=== PATIENT | female | born 1975 | race Caucasian/White ===

== ENCOUNTER 2017-04-17 08:45 | Emergency (ER) | payer BC ==
[2017-04-17 08:55] VITALS: BP 126/87
--- NOTE | 2017-04-17 09:09 | ERNOTE ---
ENT HPI Presenting Symptoms: other - patient woke this morning with purulent drainage from the left eye Time Seen by Provider: 04/17/17 09:02 Exam Limitations: no limitations - Immun/Allergies/Home Medications Immunizations: IMMUNIZATION HX Immunizations Up to Date Yes History of Influenza Vaccine More Information Required Hx Pneumococcal Vaccination More Information Required Allergies/Adverse Reactions: Allergies Allergy/AdvReac Type Severity Reaction Status Date / Time No Known Allergies Allergy Verified 05/03/16 06:21 Home Medications: HOME MEDICATIONS ALPRAZolam [Xanax] 0.5 mg PO Q6H PRN 10/20/15 [Last Taken Unknown] Acetaminophen [Tylenol] 1,000 mg PO Q6H PRN 10/20/15 [Last Taken Unknown] Ranitidine HCl [Zantac] 150 mg PO BID PRN 10/20/15 [Last Taken Unknown] Tobramycin/Dexamethasone [Tobradex Eye Drops] 1 drop OP QID #5 ml 04/17/17 [ Last Taken Unknown] - History of Present Illness Narrative: Patient is unclear exactly what happened but woke up this morning with drainage from the left eye with no known infectious contacts Severity: Present: moderate ENT Location: Present: eye (L) Prearrival Treatment: Present: no prearrival treatment Modifying Factors - Improves: Reports: nothing Modifying Factors - Worsens: Reports: nothing Associated Symptoms - ENT: Reports: denies symptoms Review of Systems - Review of Systems Constitutional: Present: See HPI EYE: Present: see HPI, eye discharge ENT: Present: no symptoms reported Respiratory: Present: no symptoms reported Cardiology: Present: no symptoms reported Gastrointestinal/Abdominal: Present: no symptoms reported Genitourinary: Present: no symptoms reported Musculoskeletal: Present: no symptoms reported Skin: Present: no symptoms reported Neurological: Present: no symptoms reported Endocrine: Present: no symptoms reported Hematologic/Lymphatic: Present: no symptoms reported Psych: Present: no symptoms reported - Patient's Past Medical History Patient History - Medical: Anemia, Anxiety, Arthritis, Depression, Migraines Patient History - Cardiac/Respiratory: No pertinent hx Patient History - Cancer: No Hx of Cancer Patient History - Surgical Procedures: Cholecystectomy, D & C, Hysterectomy, Total Hip Replacement Patient History - Other: None LMP (females 10-50): hysterectomy - Social History Living Situations: spouse Abuse History: No History of abuse Psych History: Hx of Anxiety, Hx of Depression Smoking Status: Current every day smoker Have you smoked in the past 12 months: Yes Alcohol Use: occasionally Drug Use: none - Immunizations Immunizations Up to Date: Yes Hx Pneumococcal Vaccination: More Information Required to Determine History of Influenza Vaccine: More Information Required to Determine Physical Exam - Physical Exam General Appearance: Present: wd/wn, alert, moderate distress Eye Exam: Normal inspection: right, PERRL: bilateral, Sclera injection: left, Eye drainage: left Ears, Nose, Throat: Present: normal ENT inspection, H, normal pharynx Neck: Present: normal inspection, nontender Respiratory: Present: no respiratory distress, normal breath sounds, no accessory muscle use, chest nontender, lungs clear Cardiovascular/Chest: Present: regular rate, rhythm, no murmur, normal peripheral pulses Gastrointestinal/Abdominal: Present: normal bowel sounds, nontender, nondistended, soft, no organomegaly Rectal Exam: Present: deferred Back Exam: Present: normal inspection, normal range of motion Extremity Exam: Present: normal inspection, non-tender, no edema, normal range of motion Neurological Exam: Present: alert, oriented, normal mood/affect Skin Exam: Present: normal color, warm/dry Lymphatic Exam: Present: no adenopathy ED Progress - Vital Signs Patient's Vital Signs:: I have reviewed the patient's vital signs. Vital Signs: Vital Signs 04/17/17 08:51 Temperature 36.7 C Pulse Rate 89 Respiratory 14 Rate Blood Pressure 126/87 O2 Sat by Pulse 99 Oximetry - Progress/Reassessment Chief Complaint: Eye Injury/Trauma Plan - Plan Plan: Patient will be started on TobraDex eyedrops and she will follow-up with her family physician as needed Departure Clinical Impression: Conjunctivitis Qualifiers: Conjunctivitis type: acute Acute conjunctivitis type: bacterial Laterality: left Qualified Code(s): H10.32 - Unspecified acute conjunctivitis, left eye - Departure Disposition: Home self-care Condition: Good Instructions: Bacterial Conjunctivitis, [id number] Referrals: Candice Noel MD [Primary Care Provider] - Prescriptions: Tobramycin/Dexamethasone [Tobradex Eye Drops] 1 drop OP QID #5 ml
== END 2017-04-17 09:10 | disposition home or self-care (01) ==
LOC: ER 08:45
DX: H10.32 Unspecified acute conjunctivitis, left eye (principal); F17.200 Nicotine dependence, unspecified, uncomplicated; F41.8 Other specified anxiety disorders